=== PATIENT | female | born 1980 | race Caucasian/White ===

== ENCOUNTER 2018-09-19 22:50 | Inpatient (IN) | payer OTHER ==
[2018-09-19] MEDS ORDERED: PENICILLIN G POTASSIUM 5,000,000 UNIT in D5W 150 ML IV ONE (23:00)
[2018-09-19] MEDS ORDERED: MISOPROSTOL 200 MCG TAB PR PRN (23:06)
[2018-09-19] MEDS ORDERED: OXYTOCIN/RINGERS LACTATE 1,000 ML IV PRN (23:06)
[2018-09-19] MEDS ORDERED: LIDOCAINE 1% 300 MG/30 ML SDV SC PRN (23:06)
[2018-09-19] MEDS ORDERED: EPSOM SALT 454 GM TP PRN (23:06)
[2018-09-19] MEDS ORDERED: IBUPROFEN 600 MG TAB PO PRN (23:06)
[2018-09-19] MEDS ORDERED: OLIVE OIL 118 ML BTL MISC PRN (23:06)
[2018-09-19] MEDS ORDERED: LIDOCAINE 1% 300 MG/30 ML SDV ONE (23:38)
[2018-09-19] MEDS ORDERED: AMMONIA AROMATIC 1 EACH AMP IH ONE (23:39)
[2018-09-19] MEDS ORDERED: MISOPROSTOL 200 MCG TAB ONE (23:39)
[2018-09-19] MEDS ORDERED: OLIVE OIL 118 ML BTL MISC ONE (23:39)
[2018-09-19] MEDS ORDERED: OXYTOCIN 10 UNIT/ML VIAL ONE (23:39)
[2018-09-19] MEDS ORDERED: TERBUTALINE SULFATE 1 MG/ML VIAL ONE (23:39)
[2018-09-19 23:45] LABS: PLATELET COUNT 230 10^3/uL (150-400)
[2018-09-19] MEDS: LR 1,000 ML IV PRN (23:51)
[2018-09-20] MEDS ORDERED: LR 500 ML IV PRN (01:06)
[2018-09-20] MEDS ORDERED: OXYTOCIN/RINGERS LACTATE 500 ML IV SCH (01:30)
--- NOTE | 2018-09-20 02:46 | GHP ---
[f rep st] PREOP HISTORY AND PHYSICAL DATE OF ADMISSION: 09/19/2018 ADMISSION DIAGNOSES: 1. Intrauterine at 39 weeks gestation. 2. Spontaneous rupture of membranes. 3. Group beta streptococcus negative; however, history of group beta streptococcus positive x2, doe res antibiotic prophylaxis. INDICATIONS: Patient is a 37-year-old, 3, para 3-0-0-3, who was scheduled for an elective in duction in the morning at 39 weeks gestation for suspected efwjh-cfb-[id number]-age fetus. The elder ent had spontaneous rupture of membranes at 10:00 p.m. on 09/19/2018. The patient desired to come in for observation and starting antibiotics for group beta strep. Patient was GBS positive with both o f her previous pregnancies, but was negative with this 1. She would prefer, given her history, that she receive antibiotics for GBS prophylaxis. The patient declines augmentation at this time and feta l status is reassuring, and she is feeling good movement. She is having occasional contractions. MEDICAL HISTORY: Significant for varicose veins and anemia. MEDICATIONS: vitamins and iron. SURGICAL HISTORY: Shoulder surgery, varicose vein stripping. ALLERGIES: Clindamycin which causes rash and hives. SOCIAL HISTORY: Patient is and she works as a dentist. She lives with her and her 2 other children. She denies tobacco, alcohol, or drug use. FAMILY MEDICAL HISTORY: Noncontributory. PSYCHOLOGIST PRIVATE PRACTICE HISTORY: Menarche age 13. Periods every 24 days, lasting 8 days. She is 3, para 2-0 -0-2. In 10/2011, she had a spontaneous vaginal delivery of a 9-pound 6-ounce male infant at 39-6/7 weeks gestation. She had an epidural. In 07/2013, she had a spontaneous vaginal delivery of a 7-carlos nd 15-ounce male infant at 39 weeks gestation. She also had an epidural and a questionable episode o f hemorrhage. Current has been uncomplicated. Baby has been measuring size gre ater than dates. She had an estimated weight at 33 weeks, which was 98th percentile. The [facility] ent denies any history of any abnormal Pap smears or sexually transmitted diseases. REVIEW OF SYSTEMS: Ten-point review of systems is negative. Positive movement. Positive loss of fluid. No vaginal bleeding. She denies any headache or changes in vision. PHYSICAL EXAMINATION: The patient's vital signs are stable. Her general appearance is alert and concepcion ented x3. Musculoskeletal is grossly Intact. Neuro is grossly intact. Psych is appropriate affect. Neck is mobile and supple. Heart is regular. Lungs are clear to auscultation bilaterally. Her ab domen is gravid, nondistended, nontender. Extremities reveal no calf tenderness or edema. Infant is in the vertex presentation. The patient's cervical exam is not done yet and will be deferred until initiation of augmentation of labor. heart tracing was category 1. LABS: Blood type A positive, antibody screen negative. Rubella immune. GBS negative. HBs Ag negative. HIV negative. Her 50 g glucose was 108. ASSESSMENT AND PLAN: A 37-year-old, 3, para 2-0-0-2, who is 39 weeks gestation. She is sche duled for induction of labor in the morning electively, but she had spontaneous rupture of membranes. She is requesting antibiotics for group beta streptococcus prophylaxis given her history; however, she is group beta streptococcus negative. The patient declines augmentation of labor at this time. She will sleep and then be augmented in the morning unless she progresses into labor. Patient plans an epidural. /[id number]/MODL
[2018-09-20] MEDS ORDERED: BUPIVACAINE 0.25% 10 ML SDV ONE (04:02)
[2018-09-20] MEDS ORDERED: fentaNYL 2MCG/ML/BUP 0.1% RTU 100 ML BAG EP ONE (04:02)
[2018-09-20] MEDS: LR 1,000 ML IV PRN (04:07)
[2018-09-20] MEDS ORDERED: ONDANSETRON 4 MG/2 ML VIAL IVP PRN (04:24)
[2018-09-20] MEDS ORDERED: METOCLOPRAMIDE 10 MG/2 ML VIAL IVP PRN (04:24)
[2018-09-20] MEDS ORDERED: NALOXONE HCL 0.4 MG/ML INJ IVP PRN (04:24)
[2018-09-20] MEDS ORDERED: PHENYLEPHRINE HCL 100 MCG/ML SYR IVP PRN (04:24)
--- NOTE | 2018-09-20 04:24 | PREANESOB ---
Obstetric Pre-Anesthesia Info - General Info : 3 Para: 2 YONIS: 09/27/18 Gestational Age: 38 week(s) and 6 day(s) Anesthesia Allergies/Adverse Reactions: Allergy/AdvReac Type Severity Reaction Status Date / Time clindamycin Allergy Rash/Hives Verified 09/19/18 23:06 Visit Medications: Generic Name Dose Route Start Last Admin Trade Name Freq PRN Reason Stop Dose Admin Lactated Ringer's 1,000 mls @ 0 mls/hr 09/19/18 23:06 09/20/18 04:07 Lr IV 09/20/18 23:05 1,000 mls PRN PRN Administration SEE PROTOCOL CONDITIONS Protocol Per Protocol Oxytocin/Lactated Ringer's 1,000 mls @ 125 mls/hr 09/19/18 23:06 Pitocin 20 Units/Lr (Premix) IV PRN PRN Post bleeding Penicillin G Potassium 2,500, 155 mls @ 155 mls/hr 09/20/18 03:00 000 unit/ Dextrose IV 10/20/18 02:59 Q4H [facility] Protocol Lactated Ringer's 500 mls @ 500 mls/hr 09/20/18 01:06 Lr IV 09/21/18 01:06 PRN PRN Maternal Hypotension Oxytocin/Lactated Ringer's 500 mls @ 0 mls/hr 09/20/18 01:30 Pitocin 30 Units/Lr (Premix) IV 03/19/19 01:29 CONT [facility] Protocol Per Protocol Ibuprofen 600 mg 09/19/18 23:06 Motrin PO ONCE PRN post , pain Lidocaine HCl 300 mg 09/19/18 23:06 Lidocaine Hcl 1% SC 03/18/19 23:05 ONCE PRN episiotomy Magnesium Sulfate 454 gm 09/19/18 23:06 Epsom Salt TP 03/18/19 23:05 Q1H PRN perineal discomfort Misoprostol 800 - 1,000 mcg 09/19/18 23:06 Cytotec AL ONCE PRN Vaginal Atony/Bleeding [place] Oil 118 ml 09/19/18 23:06 Sweet Oil MISC 03/18/19 23:05 ONCE PRN perineal massage Discontinued Medications Generic Name Dose Route Start Last Admin Trade Name Freq PRN Reason Stop Dose Admin Ammonia (Aromatic Spirit) Confirm 09/19/18 23:39 Ammonia Aromatic Administered 09/19/18 23:40 Dose 1 each IH .STK-MED ONE Bupivacaine HCl Confirm 09/20/18 04:02 Sensorcaine 0.25% Sdv Administered 09/20/18 04:03 Dose 10 ml .ROUTE .STK-MED ONE Fentanyl/Bupivacaine HCl Confirm 09/20/18 04:02 Fentanyl/Bupivacaine/Ns 2 Mcg/Ml 0.1% (Premix Administered 09/20/18 04:03 Dose 100 ml EP .STK-MED ONE Penicillin G Potassium 5,000, 160 mls @ 160 mls/hr 09/19/18 23:00 09/19/18 23 :51 000 unit/ Dextrose IV 09/19/18 23:59 160 mls ONCE ONE Administration Protocol Lidocaine HCl Confirm 09/19/18 23:38 Lidocaine Hcl 1% Administered 09/19/18 23:39 Dose 300 mg .ROUTE .STK-MED ONE Misoprostol Confirm 09/19/18 23:39 Cytotec Administered 09/19/18 23:40 Dose 1,000 mcg .ROUTE .STK-MED ONE [place] Oil Confirm 09/19/18 23:39 Sweet Oil Administered 09/19/18 23:40 Dose 118 ml MISC .STK-MED ONE Oxytocin Confirm 09/19/18 23:39 Pitocin Administered 09/19/18 23:40 Dose 40 unit .ROUTE .STK-MED ONE Terbutaline Sulfate Confirm 09/19/18 23:39 Brethine Administered 09/19/18 23:40 Dose 1 mg .ROUTE .STK-MED ONE - Vital Signs Height/Weight (Nursing): Height 177.8 cm Weight 73.028 kg Labs: 09/19/18 23:30 Patient ABO/Rh A POSITIVE 09/19/18 23:30
--- NOTE | 2018-09-20 04:24 | PDANEPAE ---
ANE Past Medical History - Pulmonary History Hx Sleep Apnea: No ANE Review of Systems Review of Systems: ANE Patient History - Allergies Allergies/Adverse Reactions: clindamycin Allergy (Verified 09/19/18 23:06) Rash/Hives - Smoking Hx Smoking Status: Never smoked ANE Labs/Vital Signs - Labs Result Diagrams: 09/19/18 23:30 - Vital Signs Height: 177.8 cm Weight: 73.028 kg ANE Physical Exam - ASA Status ASA Status: I ANE Anesthesia Plan Anesthesia Plan: epidural Urgent/Emergent Case: Anes eval completed preop but documented later for safe timely pt care
[2018-09-20] MEDS ORDERED: LR 500 ML IV SCH (04:30)
[2018-09-20] MEDS ORDERED: fentaNYL 2MCG/ML/BUP 0.1% RTU 100 ML EP SCH (04:30)
[2018-09-20] MEDS: PENICILLIN G POTASSIUM 2,500,000 UNIT in D5W 150 ML IV SCH ×3 (04:32→18:55)
--- NOTE | 2018-09-20 04:32 | OBPROG ---
Labor Progress Note Assessment/Plan: Assessment: Plan: Subjective/Intrapartum Course: 09/20/18 04:30 patient comfortable with epidural. sve 4/80/0. status reassuring. got one dose of pcn. will place klein and reexamine in several hours and augment if needed. Objective: 09/19/18 23:30 Patient ABO/Rh A POSITIVE 09/19/18 23:30 - SVE Dilation (cm): 4 Effacement (%): 90 Station: 0 Membranes: SROM Amniotic Fluid Color: Clear - Contraction Pattern Assessment Current Contraction Pattern: Regular - FHR Assessment [place] FHR Pattern Variability: Moderate FHR Category: 1 Oxytocin Orders Assessment - Pre-Induction/Augmentation Assessment Gestational Age: 38 week(s) and 6 day(s)
--- NOTE | 2018-09-20 10:40 | OBDEL ---
Info Type: Vaginal Presentation at Delivery: Vertex L&D Analgesia/Anesthesia Type: Epidural GBS+: No Intrapartum Medications: Generic Name Dose Route Start Last Admin Trade Name Freq PRN Reason Stop Dose Admin Lactated Ringer's 1,000 mls @ 0 mls/hr 09/19/18 23:06 09/20/18 04:07 Lr IV 09/20/18 23:05 1,000 mls PRN PRN Administration SEE PROTOCOL CONDITIONS Protocol Per Protocol Penicillin G Potassium 2,500, 155 mls @ 155 mls/hr 09/20/18 03:00 09/20/18 08 :14 000 unit/ Dextrose IV 10/20/18 02:59 155 mls Q4H ELA[facility] Administration Protocol Oxytocin/Lactated Ringer's 500 mls @ 0 mls/hr 09/20/18 01:30 09/20/18 06:13 Pitocin 30 Units/Lr (Premix) IV 03/19/19 01:29 500 mls CONT ELAINE Administration Protocol Per Protocol Phenylephrine HCl 100 mcg 09/20/18 04:24 09/20/18 08:16 Neosynephrine IVP 03/19/19 04:23 100 mcg .Q2M PRN Administration Hypotension Discontinued Medications Generic Name Dose Route Start Last Admin Trade Name Freq PRN Reason Stop Dose Admin Penicillin G Potassium 5,000, 160 mls @ 160 mls/hr 09/19/18 23:00 09/19/18 23 :51 000 unit/ Dextrose IV 09/19/18 23:59 160 mls ONCE ONE Administration Protocol - Hospital Course Intrapartum: 09/20/18 04:30 patient comfortable with epidural. sve 4/80/0. status reassuring. got one dose of pcn. will place klein and reexamine in several hours and augment if needed. Indications for Delivery: Spontaneous Labor, SROM Vaginal Delivery - Delivery Provider Delivery Physician/CNM: [facility] [place] - Labor and Delivery Onset of Contractions Date: 09/20/18 Onset of Contractions Type: Augmented (Pitocin) Rupture of Membranes Date: 09/19/18 Rupture of Membranes Time: 22:00 Rupture of Membranes Type: Spontaneous Amniotic Fluid Color: Clear Dilation Complete Date: 09/20/18 Dilation Complete Time: 09:28 Placenta Delivery Date: 09/20/18 Laceration: Other (Specify) (None) Vaginal Sponge Count Correct: Yes Vaginal Needle Count Correct: Yes Vaginal Sweep Performed: Yes EBL: 250cc Delivery Events: None (Cord around shoulder and arm) Delivery Comment: Patient presented with SROM and early labor. Received epidural. Ctxs spaced out after epidural so Pitocin augmentation added. Checked and found to be 4cm - checked 3 hrs later and found to be complete and +3/5 station. Comfortable with epidural, no urge to push. Test pushing with excellent descent. 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 We both gowned and gloved. Ultimately mom pushed for 5 pushes and delivered vigorous baby boy in direct OA position. Head delivered controlled, restituted, left shoulder anterior - delivered easily with gentle downward traction on the head - I controlled that traction, not Dad. Anterior shoulder delivered and then posterior and body without issue. Cord over the shoulder and around wrist reduced easily after delivery - baby up to mom's chest. Delayed cord clamping 2 minutes. Perineum intact - EBL 250cc. Mom and Dad and baby all doing well in room after delivery. Sponge and needle counts correct. - Medications Labor Augmentation/Induction Methods Used: Pitocin Labor Augmentation/Induction Indication: Inadequate Contraction Frequency [place] Data YONIS: 09/27/18 Gestational Age: 39 week(s) and 0 day(s) [place] Delivery Date: 09/20/18 Delivery Time: 09:52 Weight (gm): 3935 g Score (1 Min): 8 Score (5 Min): 9 Shoulder Dystocia Time Head Delivered: 09:52 Time Body Delivered: 09:52 Dystocia Comment: None ICD10 Worksheet Patient Problems: Problems Problem Status Onset AMA (advanced maternal age) multigravida 35+ Acute (spontaneous vaginal delivery) Acute
--- NOTE | 2018-09-20 10:40 | OBPROG ---
Labor Progress Note Assessment/Plan: Assessment: 37 yo at 39w0d - presented last night with SROM and early labor. - Cont Pitocin. - GBS negative. - FHR cat 2, variable decels. - Rh pos, Rubella Immune. Laboratory Tests 03/01/18 09/19/18 12:58 23:30 Rubella IgG Antibody 36.00 Patient ABO/Rh A POSITIVE Subjective/Intrapartum Course: 09/20/18 04:30 patient comfortable with epidural. sve 4/80/0. status reassuring. got one dose of pcn. will place klein and reexamine in several hours and augment if needed. 09/20/18 13:54 I assumed care for Holly this AM from Dr. Gutierrez. At that time she was comfortable with her epidural, resting. Checked after epidural placement and was 4cm, ruptured with clear fluid, florecita irregularly. Pitocin started early this AM. Objective: 09/19/18 23:30 Patient ABO/Rh A POSITIVE 09/19/18 23:30 - SVE Membranes: SROM Amniotic Fluid Color: Clear Dilation Complete Date: 09/20/18 Dilation Complete Time: 09:28 - Contraction Pattern Assessment Current Contraction Pattern: Regular - FHR Assessment [place] FHR (bpm): 120 FHR Pattern Variability: Moderate FHR Category: 2 (Variable decels) Oxytocin Orders Assessment - Pre-Induction/Augmentation Assessment Gestational Age: 38 week(s) and 6 day(s) ICD10 Worksheet Patient Problems: Problems Problem Status Onset AMA (advanced maternal age) multigravida 35+ Acute (spontaneous vaginal delivery) Acute - ICD10 Problem Qualifiers (1) (spontaneous vaginal delivery) (2) AMA (advanced maternal age) multigravida 35+ Qualifiers: Trimester: third trimester Qualified Code(s): O09.523 - Supervision of elderly multigravida, third trimester
[2018-09-20] MEDS ORDERED: oxyCODONE IR 5 MG TAB PO PRN (10:41)
[2018-09-20] MEDS ORDERED: SIMETHICONE 80 MG TAB CHEW PO PRN (10:41)
[2018-09-20] MEDS: ACETAMINOPHEN 325 MG TAB PO PRN ×2 (12:36→20:29)
[2018-09-20] MEDS: IBUPROFEN 600 MG TAB PO PRN ×2 (16:37→22:55)
[2018-09-20] MEDS: DOCUSATE SODIUM 100 MG CAP PO PRN (20:29)
[2018-09-20 21:10] VITALS: BP 97/60
[2018-09-21] MEDS: ACETAMINOPHEN 325 MG TAB PO PRN ×2 (05:12→11:11)
[2018-09-21] MEDS: IBUPROFEN 600 MG TAB PO PRN ×2 (05:12→11:11)
--- NOTE | 2018-09-21 07:24 | POSTANESTH ---
Post Anesthetic Evaluation Cardiovascular Status: Normal, Stable Respiratory Status: Normal, Stable Level of Consciousness/Mental Status: Can Participate in Eval Pain Control: Adequate, Prn Tx Ordered Nausea/Vomiting Control: Adequate, Prn Tx Ordered Complications Possibly Related to Anesthesia: None Noted
[2018-09-21] MEDS: DOCUSATE SODIUM 100 MG CAP PO PRN (11:12)
--- NOTE | 2018-09-21 11:36 | OBPP ---
Progress Note Assessment/Plan: Assessment: ppd# 1 s/p uncomplicated post course breast feeding rh+/RI Plan: 09/21/18 11:34 Subjective/ Course: 09/21/18 11:35 patient is doing well. pain is well controlled. normal lochia. denies headache and changes in vision. working with . history of issues with breast feeding. ready to go home. Objective: 09/19/18 23:30 Patient ABO/Rh A POSITIVE 09/19/18 23:30 Temp Pulse Resp BP Pulse Ox 36.6 C 64 16 97/60 L 94 09/20/18 20:20 09/20/18 20:20 09/20/18 20:20 09/20/18 20:20 09/20/18 20:20 Uterine Position/Fundal Height: Umbilicus -3 Uterine Tone: Firm Physical Exam - Physical Exam Neck: non-tender, full range of motion, supple Respiratory: chest non-tender, lungs clear, normal breath sounds Cardiac/Chest: normal peripheral pulses, regular rate, rhythm Abdomen: normal bowel sounds, non-tender Extremities: normal range of motion, non-tender, normal inspection, normal capillary refill Skin: normal color, warm/dry Neuro/Psych: no motor/sensory deficits, alert, normal mood/affect, oriented x 3
--- NOTE | 2018-09-21 11:36 | OBGCSDC ---
General Delivery Information - General Info : 3 Para: 3 Abortions: 0 Type: Vaginal L&D Analgesia/Anesthesia Type: Epidural Admission Date: 09/19/18 Labs: Patient ABO/Rh A POSITIVE 09/19/18 23:30 Hct 37.2 % (38.0-47.0) L 09/19/18 23:30 - Hospital Course Intrapartum: 09/20/18 04:30 patient comfortable with epidural. sve 4/80/0. status reassuring. got one dose of pcn. will place klein and reexamine in several hours and augment if needed. : 09/21/18 11:35 patient is doing well. pain is well controlled. normal lochia. denies headache and changes in vision. working with . history of issues with breast feeding. ready to go home. Vaginal - Delivery Provider Delivery Physician/CNM: [facility] - Diagnosis Labor: Augmented (Pitocin) Rupture of Membranes Type: Spontaneous Amniotic Fluid Color: Clear Laceration: Other (Specify) (None) Delivery Events: None (Cord around shoulder and arm) - Delivery EBL: 250cc Data YONIS: 09/27/18 Gestational Age: 39 week(s) and 1 day(s) [place] Delivery Date: 09/20/18 Delivery Time: 09:52 [place] Weight (gm): 3935 g Score (1 Min): 8 Score (5 Min): 9 Discharge Information - Discharge Information Instruction/Follow Up: Four Weeks (post mood check ), Six Weeks (post visit)
== END 2018-09-21 12:30 | disposition home or self-care (01) | DRG 807 ==
LOC: FLD 22:50 → FOB 09-20 12:10
PROVIDERS: ADMIT Obstetrics & Gynecology; ATTEND Obstetrics & Gynecology
PROC: 10E0XZZ Delivery of Products of Conception, External Approach (ICD-10-PCS; principal; 2018-09-20)
DX: O69.82X0 Labor and delivery complicated by other cord entanglement, without compression, not applicable or unspecified (principal); Z37.0 Single live birth; Z3A.39 39 weeks gestation of pregnancy
CPT/HCPCS: J2540; J2590; J3105